=== PATIENT | male | born 1980 | race Caucasian/White ===

== ENCOUNTER → 2017-01-07 | Outpatient (CLI) | payer BC ==
[2017-01-08 02:10] LABS: Alternaria alternata IgE <0.10 kU/L; Aspergillus fumagatus IgE <0.10 kU/L; Cat Epith & Dander IgE <0.10 kU/L; Cladosporian herbarum IgE <0.10 kU/L; Dermato. farinae IgE <0.10 kU/L; Maple (Box Elder) IgE <0.10 kU/L; Orchard Grs(Cocksfoot) IgE <0.10 kU/L; Ragweed,Common IgE <0.10 kU/L
[2017-01-12 00:09] LABS: Alternaria tenius IgG 3.1 mcg/mL (< 13.6); Cladosporium herbarium IgG 23.6 mcg/mL (< 14.7); Phoma ssp. IgG 4.8 mcg/mL (< 6.6); Saccaharomospora viridis Not detected (Not detected); Saccaharopoly. rectivirgula Not detected (Not detected)
== END ==
LOC: LABWHC1 16:24
PROVIDERS: ATTEND Internal Medicine Critical Care Medicine
DX: R05 Cough (principal); R06.02 Shortness of breath
CPT/HCPCS: 36415; 82785; 85652; 86001; 86003; 86606; 86609

== ENCOUNTER → 2021-11-21 | Outpatient (CLI) | payer BC ==
[2021-11-21 15:16] VITALS: BP 144/78; PULSE 78; TEMP 98.2; BMI 51.2
--- NOTE | 2021-11-21 16:22 | P.HPBAR ---
Bariatric H&P - History & Physicial H&P Date: 11/21/21 History & Physicial: Visit/CC: initial clinic visit Patient initial contact: Initial weight: Initial weight in pounds: Height: 5 ft 9 in Initial BMI: Last weight: Current weight: 157.397 kg Current weight in pounds: 347.00 Current BMI: 51.2 Bird In [place] body weight (based on NIH guidelines): 72.575 kg Excess body weight loss: The patient is a 41 year-old M who presents for Bariatric Assessment. Patient presents to discuss bariatric surgical options. Patient is interested in sleeve gastrectomy. Patient has some dyspnea on exertion and some knee pain chronically. No other health issues that he is aware of. No tobacco use. No history of DVT or dysphagia. Denies any significant heartburn. Review of Systems The patient denies any acute changes in vision or hearing, no dysphagia or odynophagia, no chest pain or shortness of breath, no dysuria or hematuria, no headache, no runny nose, no rectal bleeding or melena, no unexplained weight loss Past Medical History Past Medical History: No Reported History History of Any Multi-Drug Resistant Organisms: None Reported Past Surgical History: Orthopedic Surgery Additional Past Surgical History / Comment(s): right wrist surgery. right knee arthroscopy Past Anesthesia/Blood Transfusion Reactions: No Reported Reaction Smoking Status: Never smoker Surgical - Exam Vital Signs Temp Pulse BP 98.2 F 78 144/78 11/21/21 15:14 11/21/21 15:14 11/21/21 15:14 Physical exam: General: Well-developed, well-nourished HEENT: Normocephalic, sclerae nonicteric Abdomen: Nontender, nondistended Extremities: No edema Neuro: Alert and oriented Bariatric Assessment & Plan (1) Morbid obesity with BMI of 50.0-59.9, adult Narrative/Plan: 41-year-old male with BMI of 51. Discussed bariatric surgical options and their associated risks and benefits in detail. Patient remains interested in sleeve gastrectomy. We'll clarify whether supervised weight loss is required. Patient will require EGD preoperatively. This will be arranged. Status: Acute Bariatric Checklist Checklist: Plan: Checklist: EGD: 1. Hiatal hernia: 2. H. Pylori: HgbA1c: Vitamin D: Smoking: Primary care physician referral: Psychiatry clearance: Cardiology clearance: Sleep study: Diet journal: VTE risk score: VTE risk level: Rehab needs at discharge:
[2021-11-21 22:38] LABS: HCT 44.1 % (39.6-50.0); HGB 14.9 g/dL (13.0-17.0); MCH 29.3 pg (27.0-32.0); MCHC 33.8 g/dL (32.0-37.0); MCV 86.8 fL (80.0-97.0); Mean Platelet Volume 10.3 fL (9.5-12.2); NRBC Per 100 WBC 0 /100 WBCS (0.0-0.0); Platelet Count 244 X 10*3/uL (140-440); RBC 5.08 X 10*6/uL (4.40-5.60); RDW 12.9 % (11.5-14.5); WBC 8.62 X 10*3/uL (4.50-10.00)
[2021-11-22 02:33] LABS: African American GFR (CKD) 117.4 (60.0-200.0); Albumin 4.7 g/dL (3.8-4.9); Albumin/Globulin Ratio 1.68 (1.60-3.17); Anion Gap 15.5 mmol/L (10.00-18.00); BUN/Creat Ratio 15.14 Ratio (12.00-20.00); Blood Urea Nitrogen 14.2 mg/dL (9.0-27.0); Calcium 9.5 mg/dL (8.7-10.3); Carbon Dioxide 22.3 mmol/L (20.0-27.5); Globulin 2.8 g/dL (1.6-3.3); Non-African American GFR(CKD) 101.3 (60.0-200.0); Potassium 4.5 mmol/L (3.5-5.5); Total Bilirubin 0.3 mg/dL (0.30-1.20); Total Protein 7.5 g/dL (6.2-8.2)
[2021-11-23 10:19] LABS: Anabasine Urine <2.0 ng/mL (<2.0)
== END ==
LOC: BARWHC3 14:04
PROVIDERS: ATTEND Surgery
DX: E66.01 Morbid (severe) obesity due to excess calories (principal); Z68.43 Body mass index [BMI] 50.0-59.9, adult; Z88.0 Allergy status to penicillin
CPT/HCPCS: 36415; 80053; 80323; 82306; 82607; 82746; 83036; 83540; 84425; 85027; 93005; 99203

== ENCOUNTER 2021-12-31 10:01 | Day surgery (SDC) | payer BC ==
[2021-12-26 18:21] VITALS: BMI 51.2
[~2021-12-31 10:01] MED LIST: LACTATED RINGERS 1,000 ML IV SCH; LIDOCAINE 1% (10MG/ML) FOR IV START INTRADERMA PRN
[2021-12-31 10:29] VITALS: TEMP 98.2
[2021-12-31] MEDS ORDERED: LACTATED RINGERS 1,000 ML IV ONE (10:30)
[2021-12-31] MEDS ORDERED: fentaNYL (PF) 50 MCG/ML 2 ML AMP ONE (11:00)
[2021-12-31] MEDS ORDERED: LIDOCAINE 2% INJ 20 MG/ML (2 ML VIAL) ONE (11:00)
[2021-12-31] MEDS ORDERED: KETAMINE 10 MG/ML 20 ML VIAL ONE (11:00)
[2021-12-31] MEDS ORDERED: PROPOFOL 10 MG/ML 20 ML VIAL IV ONE (11:00)
[2021-12-31] MEDS ORDERED: MIDAZOLAM 2 MG/2 ML VIAL ONE (11:00)
--- NOTE | 2021-12-31 11:02 | P.GSHP ---
History of Present Illness H&P Date: 12/31/21 Chief Complaint: GERD, presurgical 41-year-old male here today for upper endoscopy. Patient being followed in the bariatric clinic for possible sleep gastrectomy. Minimal reflux symptoms. No dysphagia. Past Medical History Past Medical History: No Reported History Additional Past Medical History / Comment(s): Low in Vitamin D, on Rx now. History of Any Multi-Drug Resistant Organisms: None Reported Past Surgical History: Orthopedic Surgery Additional Past Surgical History / Comment(s): right wrist surgery. right knee arthroscopy Past Anesthesia/Blood Transfusion Reactions: No Reported Reaction Smoking Status: Never smoker - Past Family History Mother Family Medical History: No Reported History Medications and Allergies Home Medications Medication Instructions Recorded Confirmed Type Cholecalciferol [Vitamin D3 (125 125 mcg PO DAILY 12/26/21 12/26/21 History Mcg = 5000 Iu)] Allergies Allergy/AdvReac Type Severity Reaction Status Date / Time Penicillins Allergy Swelling Verified 12/26/21 18:10 Surgical - Exam Vital Signs Temp Pulse Resp BP Pulse Ox 98.2 F 60 18 158/85 98 12/31/21 10:28 12/31/21 10:28 12/31/21 10:28 12/31/21 10:28 12/31/21 10:28 Physical exam: General: Well-developed, well-nourished HEENT: Normocephalic, sclerae nonicteric Abdomen: Nontender, nondistended Extremities: No edema Neuro: Alert and oriented Assessment and Plan (1) GERD (gastroesophageal reflux disease) Narrative/Plan: Will proceed with upper endoscopy. Current Visit: Yes Status: Acute Code(s): K21.9 - GASTRO-ESOPHAGEAL REFLUX DISEASE WITHOUT ESOPHAGITIS SNOMED Code(s): 015863372
--- NOTE | 2021-12-31 11:11 | P.PCN ---
Date of Procedure: 12/31/21 Procedure(s) Performed: Preoperative Dx: GERD, presurgical Postoperative Dx: Mild gastritis, mild distal esophagitis Procedure: EGD with Bx Anesthesia: Sedation Endoscopist: Dr. Ramos Specimens: Antrum, distal esophagus Endoscopic Procedure: The patient was on the endoscopy table in the left decubitus position. The Olympus gastroscope was inserted into the oropharynx and passed under direct visualization to the region of the third portion of the duodenum. From that point the scope was slowly withdrawn inspecting all surfaces carefully. There were no neoplastic inflammatory or polypoid lesions throughout the duodenum. The pylorus was widely patent. The stomach was carefully inspected. There was mild gastritis present. A biopsy of the antrum took place to rule out H. pylori. Retroflexion revealed a normal hiatus. The esophagus was then carefully examined. There was a small linear erosion measuring 1 cm that was biopsied. The remainder the esophagus appear normal. The patient was then taken to the recovery room in stable condition per anesthesia guidelines. Recommendations: Begin antiacid therapy. Continue bariatric preoperative workup
[2021-12-31] MEDS ORDERED: IV FLUID CONTINUATION 900 ML IV ONE (11:13)
[2021-12-31 11:30] VITALS: BP 124/81; PULSE 73; RESP 18
== END 2021-12-31 11:43 ==
LOC: ORWHC2ENDO 10:01
PROVIDERS: ATTEND Surgery
DX: K29.50 Unspecified chronic gastritis without bleeding (principal); K21.00 Gastro-esophageal reflux disease with esophagitis, without bleeding; Z88.0 Allergy status to penicillin
CPT/HCPCS: 43239; 88305; J2250; J3010; J2704; J2001

== ENCOUNTER → 2022-01-21 | Outpatient (CLI) | payer BC ==
[2022-01-21 14:30] VITALS: BP 154/77; PULSE 77; RESP 16; TEMP 98.2; BMI 51.8
--- NOTE | 2022-01-21 14:42 | P.BASOAP ---
Subjective Progress Note Date: 01/21/22 Principal diagnosis: Morbid obesity Patient here today for preoperative assessment. Underwent recent EGD on 12/31. Patient had mild gastritis and distal esophagitis at the time and was started on antiacid therapy. H. pylori was negative. No changes to his previous history and physical. Underwent psychiatric evaluation and has a letter of clearance here today. He has 1 more supervised weight loss visit for a total of 3 months this . Objective - Vital Signs Vital signs: Vital Signs Temp 98.2 F 01/21/22 14:19 Pulse 77 01/21/22 14:19 Resp 16 01/21/22 14:19 BP 154/77 01/21/22 14:19 Pulse Ox FiO2 Intake & Output 01/20/22 01/21/22 01/21/22 18:59 06:59 18:59 Weight 159.211 kg - Exam Abdomen: Soft, nontender, nondistended Assessment/Plan (1) Morbid obesity with BMI of 50.0-59.9, adult Narrative/Plan: 41-year-old male with morbid obesity and associated comorbidities. Patient remains interested in laparoscopic sleeve gastrectomy. The surgical consent form was reviewed in detail. We'll proceed with laparoscopic da Horace-assisted sleeve gastrectomy, possible open. The risks of bleeding, infection, stenosis, stricture, leak, abscess, fistula formation, peritonitis, poor weight loss, reflux, vomiting, conversion to an open procedure, aborting sleeve gastrectomy, AK, PE, DVT, and were discussed. The patient understands and wishes to proceed. Plan: Date: 01/21/22 Initial Weight: 157.397 kg Initial BMI: 51.2 Current Weight: 159.211 kg Current BMI: 51.8 Type of Surgery: Total Volume in Band: Previous Volume: Volume Removed: Volume Added: Band Size:
== END ==
LOC: BARWHC3 14:14
PROVIDERS: ATTEND Surgery
DX: E66.01 Morbid (severe) obesity due to excess calories (principal); K29.70 Gastritis, unspecified, without bleeding; Z68.43 Body mass index [BMI] 50.0-59.9, adult; Z88.0 Allergy status to penicillin
CPT/HCPCS: 99211

== ENCOUNTER → 2022-01-27 | Outpatient (CLI) | payer BC ==
[2022-01-27 14:01] VITALS: BMI 52.1
== END ==
LOC: BARWHC3 08:45
PROVIDERS: ATTEND Surgery
DX: E66.01 Morbid (severe) obesity due to excess calories (principal); Z71.3 Dietary counseling and surveillance; Z68.43 Body mass index [BMI] 50.0-59.9, adult; Z88.0 Allergy status to penicillin
CPT/HCPCS: 97804

== ENCOUNTER → 2022-03-04 | Outpatient (CLI) | payer BC ==
[2022-03-04 14:15] LABS: Basophils # (A) 0.02 X 10*3/uL (0.00-0.10); Basophils % (A) 0.3 %; Eosinophils # (A) 0.03 X 10*3/uL (0.04-0.35); Eosinophils % (A) 0.5 %; HCT 42.5 % (39.6-50.0); HGB 14.3 g/dL (13.0-17.0); Immature Grans, Automated 0.5 %; Lymphocytes % (A) 24.4 %; MCH 28.9 pg (27.0-32.0); MCHC 33.6 g/dL (32.0-37.0); Mean Platelet Volume 11.2 fL (9.5-12.2); Monocytes # (A) 0.56 X 10*3/uL (0.20-1.00); Monocytes % (A) 8.5 %; NRBC Per 100 WBC 0 /100 WBCS (0.0-0.0); Neutrophils # (A) 4.31 X 10*3/uL (1.80-7.70); Neutrophils % (A) 65.8 %; Platelet Count 225 X 10*3/uL (140-440); RBC 4.94 X 10*6/uL (4.40-5.60); WBC 6.55 X 10*3/uL (4.50-10.00)
[2022-03-04 14:27] LABS: African American GFR (CKD) 127.6 (60.0-200.0); Albumin 4.5 g/dL (3.8-4.9); Albumin/Globulin Ratio 1.44 (1.60-3.17); Anion Gap 11.7 mmol/L (10.00-18.00); BUN/Creat Ratio 17.61 Ratio (12.00-20.00); Blood Urea Nitrogen 14.6 mg/dL (9.0-27.0); Calcium 9.5 mg/dL (8.7-10.3); Carbon Dioxide 24.3 mmol/L (20.0-27.5); Globulin 3.1 g/dL (1.6-3.3); Non-African American GFR(CKD) 110.1 (60.0-200.0); Potassium 4.3 mmol/L (3.5-5.5); Total Bilirubin 0.4 mg/dL (0.30-1.20); Total Protein 7.6 g/dL (6.2-8.2)
== END | disposition home or self-care (01) ==
LOC: LABPAT 09:09
PROVIDERS: ATTEND Surgery
DX: Z01.812 Encounter for preprocedural laboratory examination (principal)
CPT/HCPCS: 80053; 85025

== ENCOUNTER 2022-03-10 09:40 | Inpatient (IN) | payer BC ==
[~2022-03-10 09:40] MED LIST changes: +ACETAMINOPHEN TAB 500 MG TAB PO PRN; +DEXAMETHASONE SOD PHOSPHATE 4 MG/ML 1 ML VIAL IV ONE; +ENOXAPARIN 40 MG/0.4 ML SYRINGE SQ PRN; -LACTATED RINGERS 1,000 ML IV SCH; +ONDANSETRON 4 MG/2 ML VIAL IVP ONE; +ONDANSETRON 4 MG/2 ML VIAL IVP PRN; +SCOPOLAMINE 1 MG/72 HR PATCH TRANSDERM ONE; +ceFAZolin 3 GM in SODIUM CHLORIDE 0.9% 100 ML IVPB PRN
--- NOTE | 2022-03-10 12:28 | P.GSHP ---
History of Present Illness H&P Date: 03/10/22 Chief Complaint: Morbid obesity 42-year-old male here today for elective sleeve gastrectomy. Was first seen in the bariatric clinic in November. Patient interested in sleeve gastrectomy from the onset. Complaints of dyspnea on exertion and bilateral knee pain. Recent findings of mild reflux. No history of DVT or dysphagia. No tobacco use. BMI 51. No abdominal surgeries. Past Medical History Past Medical History: No Reported History Additional Past Medical History / Comment(s): Low in Vitamin D, on Rx now. History of Any Multi-Drug Resistant Organisms: None Reported Past Surgical History: Orthopedic Surgery Additional Past Surgical History / Comment(s): Right wrist surgery, right knee arthroscopy, EGD. Past Anesthesia/Blood Transfusion Reactions: No Reported Reaction Past Psychological History: No Psychological Hx Reported Smoking Status: Never smoker Past Alcohol Use History: Occasional Past Drug Use History: None Reported - Past Family History Mother Family Medical History: No Reported History Medications and Allergies Home Medications Medication Instructions Recorded Confirmed Type Cholecalciferol [Vitamin D3 (125 125 mcg PO DAILY 12/26/21 01/22/22 History Mcg = 5000 Iu)] Allergies Allergy/AdvReac Type Severity Reaction Status Date / Time Penicillins Allergy Swelling Verified 03/04/22 17:11 Surgical - Exam Physical exam: General: Well-developed, well-nourished HEENT: Normocephalic, sclerae nonicteric Abdomen: Nontender, nondistended Extremities: No edema Neuro: Alert and oriented Assessment and Plan (1) Morbid obesity with BMI of 50.0-59.9, adult Narrative/Plan: 42-year-old male with morbid obesity and associated comorbidities. We'll proceed with laparoscopic da Horace assisted sleeve gastrectomy, possible open. The risks of bleeding, infection, stenosis, stricture, leak, abscess, fistula formation, peritonitis, poor weight loss, reflux, vomiting, conversion to an open procedure, aborting sleeve gastrectomy, [place], PE, DVT, and were discussed. The patient understands and wishes to proceed. Current Visit: No Status: Acute Code(s): E66.01 - MORBID (SEVERE) OBESITY DUE TO EXCESS CALORIES; Z68.43 - BODY MASS INDEX [BMI] 50.0-59.9, ADULT SNOMED Code(s): 121126293
[2022-03-10] MEDS: LACTATED RINGERS 1,000 ML IV SCH (12:32)
[2022-03-10] MEDS ORDERED: GLYCOPYRROLATE 0.2 MG/ML 2 ML VIAL ONE (15:04)
[2022-03-10] MEDS ORDERED: PROPOFOL 10 MG/ML 20 ML VIAL IV ONE (15:04)
[2022-03-10] MEDS ORDERED: fentaNYL (PF) 50 MCG/ML 2 ML AMP ONE (15:04)
[2022-03-10] MEDS ORDERED: SUCCINYLCHOLINE CHLORIDE 200 MG/10 ML VIAL IV ONE (15:04)
[2022-03-10] MEDS ORDERED: HYDROmorphone (PF) 1 MG/ML ONE (15:04)
[2022-03-10] MEDS ORDERED: LIDOCAINE 2% INJ 20 MG/ML (2 ML VIAL) ONE (15:04)
[2022-03-10] MEDS ORDERED: MIDAZOLAM 2 MG/2 ML VIAL ONE (15:04)
[2022-03-10] MEDS ORDERED: ROCURONIUM 10 MG/ML (5 ML VIAL) IV ONE (15:04)
[2022-03-10] MEDS ORDERED: BUPIVACAIN-EPI 0.25%-1:200,000 30 ML VIAL SQ ONE ×2 (15:39)
[2022-03-10] MEDS ORDERED: METHYLENE BLUE IRRIGATION ONE ×4 (16:36)
[2022-03-10] MEDS ORDERED: SODIUM CHLORIDE 0.9% IRRIGATION ONE ×4 (16:36)
[2022-03-10] MEDS ORDERED: ONDANSETRON 4 MG/2 ML VIAL IVP PRN (17:19)
[2022-03-10] MEDS ORDERED: HYDROmorphone 0.5 MG/0.5 ML SYRINGE IVP PRN (17:19)
[2022-03-10] MEDS ORDERED: diphenhydrAMINE 50 MG/ML 1 ML VIAL IVP PRN (17:19)
[2022-03-10] MEDS ORDERED: NALOXONE 0.4 MG/ML 1 ML VIAL IV PRN (17:19)
[2022-03-10] MEDS ORDERED: SIMETHICONE 40 MG/0.6 ML DROPS 2,000 MG/30 ML BOTTLE PO PRN (17:19)
[2022-03-10] MEDS ORDERED: HYOSCYAMINE ORAL DROPS 1.875 MG/15 ML BOTTLE PO PRN (17:19)
[2022-03-10] MEDS ORDERED: LACTATED RINGERS 1,000 ML IV ONE (17:21)
--- NOTE | 2022-03-10 17:23 | P.OP ---
Date of Procedure: 03/10/22 Procedure(s) Performed: PREOPERATIVE DIAGNOSIS: Morbid obesity POSTOPERATIVE DIAGNOSIS: Same PROCEDURE: Da Horace assisted laparoscopic sleeve gastrectomy SURGEON: Richard EBL: Minimal ANESTHESIA: General COMPLICATIONS: None OPERATIVE PROCEDURE: Patient was placed in the operating table in the supine position. The patient was then placed under general anesthesia at that time. The abdomen was prepped and draped in the usual sterile fashion. A 5 mm optical trocar was placed in the left upper quadrant 20 cm inferior to the xiphoid process. Insufflation took place up to 15 mmHg. No adhesions were seen. A 5 mm subxiphoid incision was made and the medium Hansa retractor was used to elevate the left lobe of liver anteriorly. This was held in place using the fixed arm retractor. An additional 12 mm trocar was placed in the right paramedian location and 2 additional 8 mm trochars were placed in the left upper quadrant one medial and one lateral to the initially placed optical trocar. All of these trochars were placed along the same plane. The initial 5 was then switched to an 8 mm trocar. The robot was then docked appropriately. The 8 mm camera was placed in the left paramedian trocar site down viewing. A fenestrated bipolar was placed in arm 1, arm 3 had the vessel sealer, arm 4 had the small grasper retractor. The hiatus was inspected and there was no visible hiatal hernia. At that point I moved to the distal aspect of the greater curvature the stomach. The short gastric vasculature were divided using the vessel sealer. This dissection took place distally until we were 4 cm from the pylorus. The posterior adhesions were divided as well. The dissection then took place proximally along the stomach until the posterior short gastrics were divided and the fundus of the stomach was fully mobilized. Once the stomach was fully mobilized the blunt tipped 40-Emirati bougie dilator was advanced into the stomach and advanced all the way to the prepyloric location. The patient's stomach by palpation seemed to be of average thickness. No buttressing was utilized. A total of 7 firings of the stapler to place. First load was green, followed by 4 blue loads followed by 2 white loads. The stomach was then placed in the right upper quadrant after it was fully excised. The oral gastric tube was reinserted. The stomach was insufflated with approximately 100 mL of methylene blue. No evidence of leak or obstruction was seen. Tisseel fibrin glue was then used along the length of the staple line. The robot was then undocked. The da Horace laparoscope was used and the stomach was removed from the 12 mm trocar site without difficulty. The fascia at the 12mm site was closed using [id number] 0 Vicryl sutures with the laparoscopic suture passer and Bertin Iris technique. The insufflation was evacuated. The skin at all 5 incisions were closed using 4-0 Monocryl sutures. Skin glue was then applied. DISPOSITION: Stable to recovery room
[2022-03-10] MEDS ORDERED: ONDANSETRON 4 MG/2 ML VIAL IVP ONE (17:35)
[2022-03-10] MEDS: HYDROmorphone 0.5 MG/0.5 ML SYRINGE IVP PRN ×4 (18:02→18:45)
[2022-03-10] MEDS: HYDROmorphone 1 MG/ML 1 ML SYRINGE IVP PRN ×2 (19:35→22:40)
[2022-03-10] MEDS: ACETAMINOPHEN IV (For NPO) 1,000 MG in EMPTY BAG 1 BAG IVPB SCH (20:00)
[2022-03-10] MEDS: ALBUTEROL NEBULIZED 2.5 MG/3 ML INHALATION SCH ×2 (20:19→20:22)
[2022-03-10] MEDS: 0.9% NACL WITH KCL 20 MEQ/L 1,000 ML IV SCH (20:52)
[2022-03-11] MEDS: ACETAMINOPHEN IV (For NPO) 1,000 MG in EMPTY BAG 1 BAG IVPB SCH ×5 (00:34→23:28)
[2022-03-11] MEDS: ENOXAPARIN 40 MG/0.4 ML SYRINGE SQ SCH ×3 (00:34→21:34)
[2022-03-11] MEDS: 0.9% NACL WITH KCL 20 MEQ/L 1,000 ML IV SCH ×3 (00:35→17:58)
[2022-03-11] MEDS: HYDROmorphone 1 MG/ML 1 ML SYRINGE IVP PRN (03:59)
[2022-03-11] MEDS: LACTATED RINGERS 1,000 ML IV SCH (08:02)
[2022-03-11 08:46] LABS: Basophils # (A) 0.01 X 10*3/uL (0.00-0.10); Basophils % (A) 0.1 %; Eosinophils # (A) 0 X 10*3/uL (0.04-0.35); Eosinophils % (A) 0 %; HCT 40.4 % (39.6-50.0); HGB 13.2 g/dL (13.0-17.0); Immature Grans, Automated 0.3 %; Lymphocytes # (A) 0.83 X 10*3/uL (0.90-5.00); Lymphocytes % (A) 8.5 %; MCH 28.8 pg (27.0-32.0); MCHC 32.7 g/dL (32.0-37.0); Mean Platelet Volume 11.1 fL (9.5-12.2); Monocytes # (A) 0.64 X 10*3/uL (0.20-1.00); Monocytes % (A) 6.6 %; NRBC Per 100 WBC 0 /100 WBCS (0.0-0.0); Neutrophils # (A) 8.23 X 10*3/uL (1.80-7.70); Neutrophils % (A) 84.5 %; Platelet Count 229 X 10*3/uL (140-440); RBC 4.59 X 10*6/uL (4.40-5.60); RDW 13.4 % (11.5-14.5); WBC 9.74 X 10*3/uL (4.50-10.00)
[2022-03-11 09:03] LABS: Anion Gap 16.4 mmol/L (10.00-18.00); Calcium 8.6 mg/dL (8.7-10.3); Carbon Dioxide 16.6 mmol/L (20.0-27.5); Phosphorus 3.4 mg/dL (2.4-5.1); Potassium 4.7 mmol/L (3.5-5.5)
[2022-03-11 09:04] LABS: African American GFR (CKD) 128.6 (60.0-200.0)
[2022-03-11 09:05] LABS: Magnesium 1.9 mg/dL (1.5-2.4)
--- NOTE | 2022-03-11 09:08 | FL ---
EXAMINATION TYPE: FL UGI DATE OF EXAM: 03/11/2022 COMPARISON: None HISTORY: Postop gastric sleeve TECHNIQUE: A single contrast UGI study is performed. FINDINGS: Images: 58 Fluoroscopy time: 49 seconds. Contrast passes from the distal esophagus through the gastric sleeve with R hesitancy. No extravasati on of contrast is evident. No free air is noted during this examination. Overhead radiographs were obtained which are unremarkable. The demonstration of contrast passing thro ugh the gastric sleeve is evident. IMPRESSIONS: 1. Normal post gastric sleeve without obstruction or hesitancy. No extravasation.
[2022-03-11] MEDS: ALBUTEROL NEBULIZED 2.5 MG/3 ML INHALATION SCH ×4 (09:11→21:10)
[2022-03-11] MEDS: PANTOPRAZOLE 40 MG/10 ML VIAL IV SCH (09:14)
--- NOTE | 2022-03-11 11:34 | P.PN ---
Subjective Progress Note Date: 03/11/22 CHIEF COMPLAINT: Morbid obesity HISTORY OF PRESENT ILLNESS: Postop day# 1 status post laparoscopic sleeve gastrectomy. Patient complaining of nausea after drinking the barium for the upper GI. He denies any vomiting. He does report abdominal pain. No flatus. He has been up and ambulating. Upper GI shows no obstruction or hesitancy. No extravasation. Afebrile. WBC is 9.74 Hgb 13.2 platelets 229 sodium is 13 potassium is 4.7 creatinine 0.8 magnesium 1.9 phosphorus 3.4 PHYSICAL EXAM: VITAL SIGNS: Reviewed. GENERAL: Well-developed in no acute distress. HEENT: No sclera icterus. Extraocular movements grossly intact. Moist buccal mucosa. Head is atraumatic, normocephalic. ABDOMEN: Soft. Nondistended. Incision sites clean and intact NEUROLOGIC: Alert and oriented. Cranial nerves II through XII grossly intact. ASSESSMENT: 1. Morbid obesity status post Da Horace assisted laparoscopic sleeve gastrectomy PLAN: -Start bariatric clear liquid diet -Continue IV fluids -Continue antibiotics with Zofran and scopolamine patch -Toradol added for pain control -Encouraged patient to use incentive spirometer -Encouraged patient to ambulate -GI prophylaxis Protonix and DVT prophylaxis subcu Lovenox Physician Machine Operators note has been reviewed by physician. Signing provider agrees with the documented findings, assessment, and plan of care. I have personally seen and examined the patient, reviewed the [employer] SKILL[employer] COACH /PAs history, exam and MDM and agree with the assessment and plan as written. Based on total visit time, I have performed more than 50% of the visit. As above: Patient doing well today. Minimal discomfort. Begin bariatric liquids. Probable discharge tomorrow. Objective - Vital Signs Vital signs: Vital Signs Temp 97.8 F 03/11/22 07:43 Pulse 64 03/11/22 07:43 Resp 16 03/11/22 07:43 BP 104/56 03/11/22 07:43 Pulse Ox 98 03/11/22 07:43 FiO2 Intake & Output 03/10/22 03/11/22 03/11/22 18:59 06:59 18:59 Intake Total 1501 Output Total 10 Balance 1491 Weight 148.8 kg Intake: IV 1501 Output: Estimated Blood Loss 10 Other: Voiding Method Toilet - Labs CBC & Chem 7: 03/11/22 06:20 03/11/22 06:20 Labs: Abnormal Lab Results - Last 24 Hours (Table) 03/11/22 03/11/22 Range/Units 06:20 06:20 Neutrophils # 8.23 H (1.80-7.70) X 10*3/uL Lymphocytes # 0.83 L (0.90-5.00) X 10*3/uL Eosinophils # 0 L (0.04-0.35) X 10*3/uL Carbon Dioxide 16.6 L (20.0-27.5) mmol/L Calcium 8.6 L (8.7-10.3) mg/dL
[2022-03-11] MEDS: KETOROLAC 15 MG/ML 1 ML VIAL IVP SCH ×3 (11:36→23:29)
[2022-03-11 13:00] VITALS: BMI 48.4
--- NOTE | 2022-03-11 14:07 | P.CONS ---
History of Present Illness - Reason for Consult Consult date: 03/11/22 Medical management postop sleep gastrectomy - History of Present Illness This is a pleasant 42-year-old male who was recently admitted under surgical services and underwent sleeve gastrectomy with Dr. Ramso is postop day #1 and is being closely monitored. Patient reports his primary care provider is out of [facility] and denies any significant past medical history. Patient has been following at the bariatric clinic for morbid obesity and decided to go forward with sleeve gastrectomy. Patient reports to feeling fatigued today although has been up and walking and reports minimal gas. Patient reports to belching and did have upper GI series this morning postop which shows a normal post gastric sleeve without obstruction or hesitancy and no extravasation noted. Sluggish bowel sounds noted on exam with abdominal binder noted. Patient is maintained on bariatric clear liquid diet. Patient denies any nausea or vomiting and encourage the patient to increase activity as tolerated and also continue with incentive spirometer use at least 10 times every hour while awake. Patient is afebrile denies chest pain or shortness of breath. Review Of Systems: Constitutional: No fever, no chills, no night sweats. No weight change. No weakness, reports fatigue. No daytime sleepiness. EENT: No headache. No blurred vision or double vision, no loss of vision. No loss of Hearing, no ringing in the ears, no dizziness. No nasal drainage or congestion. No epistaxis. No sore throat. Lungs: No shortness of breath, cough, no sputum production. No wheezing. Cardiovascular: No chest pain, no lower extremity edema. No palpitations. No paroxysmal nocturnal dyspnea. No orthopnea. No lightheadedness or dizziness. No syncopal episodes. Abdominal: Reports some mild abdominal pain with moving. Reported some mild nausea while drinking the a.m. upper GI series contrast, no vomiting. No diarrhea. No constipation. No bloody or tarry stools.. No loss of appetite. Reports belching with minimal gas and no bowel movement as of yet Genitourinary: No dysuria, increased frequency, urgency. No urinary retention. Musculoskeletal: No myalgias. No muscle weakness, no gait dysfunction, no frequent falls. No back pain. No neck pain. Integumentary: No wounds, no lesions. No rash or pruritus. No unusual bruising. No change in hair or nails. Neurologic: No aphasia. No facial droop. No change in mentation. No head injury. No headache. No paralysis. No paresthesia. Psychiatric: No depression. No anxiety. No mood swings. Endocrine: No abnormal blood sugars. No weight change. No excessive sweating or thirst. No cold intolerance. Active Medications Albuterol Sulfate (Albuterol Nebulized 2.5 Mg/3 Ml) 2.5 mg INHALATION RT-QID COUNT INCLUDES THE [facility] Last Admin: 03/11/22 12:45 Dose: 2.5 mg Diphenhydramine HCl (Diphenhydramine 50 Mg/Ml 1 Ml Vial) 25 mg IVP Q6HR PRN PRN Reason: Itching Enoxaparin Sodium (Enoxaparin 40 Mg/0.4 Ml Syringe) 40 mg SQ Q12HR COUNT INCLUDES THE [facility] Last Admin: 03/11/22 09:14 Dose: 40 mg Hydromorphone HCl (Hydromorphone 0.5 Mg/0.5 Ml Syringe) 0.5 mg IVP Q3HR PRN PRN Reason: Moderate Pain (4 to 6) Hydromorphone HCl (Hydromorphone 1 Mg/Ml 1 Ml Syringe) 1 mg IVP Q3HR PRN PRN Reason: Severe Pain (7 to 10) Last Admin: 03/11/22 03:59 Dose: 1 mg Hyoscyamine (Hyoscyamine Oral Drops 1.875 Mg/15 Ml Bottle) 0.125 mg PO Q6HR PRN PRN Reason: Esophageal Spasm Lactated Ringer's (Lactated Ringers) 1,000 mls @ 20 mls/hr IV .Q24H COUNT INCLUDES THE [facility] Last Admin: 03/11/22 08:02 Dose: Not Given Potassium Chloride/Sodium Chloride (Ns-Kcl 20 Meq/L Iv Solution) 1,000 mls @ 100 mls/hr IV .Q10H COUNT INCLUDES THE [facility] Last Admin: 03/11/22 09:15 Dose: 100 mls/hr Acetaminophen 1,000 mg/ IV (Solution) 100 mls @ 400 mls/hr IVPB Q6HR COUNT INCLUDES THE [facility] Last Admin: 03/11/22 11:35 Dose: 400 mls/hr Ketorolac Tromethamine (Ketorolac 15 Mg/Ml 1 Ml Vial) 15 mg IVP Q6HR COUNT INCLUDES THE [facility] Stop: 03/14/22 08:10 Last Admin: 03/11/22 11:36 Dose: 15 mg Lidocaine HCl (Lidocaine 1% (10mg/Ml) For Iv Start) 0.1 ml INTRADERMA PER PROTOCOL PRN PRN Reason: IV Start Naloxone HCl (Naloxone 0.4 Mg/Ml 1 Ml Vial) 0.2 mg IV Q2M PRN PRN Reason: Opioid Reversal Ondansetron HCl (Ondansetron 4 Mg/2 Ml Vial) 4 mg IVP Q6HR PRN PRN Reason: Nausea And Vomiting Last Admin: 03/11/22 09:14 Dose: 4 mg Pantoprazole Sodium (Pantoprazole 40 Mg/10 Ml Vial) 40 mg IV DAILY AARON Last Admin: 03/11/22 09:14 Dose: 40 mg Simethicone (Simethicone 40 Mg/0.6 Ml Drops 2,000 Mg/30 Ml Bottle) 40 mg PO Q6HR PRN PRN Reason: Bloating PHYSICAL EXAMINATION: GENERAL: The patient is alert and oriented x4, Well developed, well nourished. HEENT: Pupils are round and equally reacting to light. EOMI. no scleral icterus. No conjunctival pallor. Normocephalic, atraumatic. No pharyngeal erythema. No thyromegaly. CARDIOVASCULAR: S1 and S2 muffled PULMONARY: diminished breath sounds bilaterally with no wheezing or rhonchi noted. ABDOMEN: soft. Mildly tender on exam. obese. non-distended, sluggish bowel sounds. No palpable organomegaly. Abdominal binder noted MUSCULOSKELETAL: No joint swelling or deformity. EXTREMITIES: No cyanosis, clubbing, or pedal edema. NEUROLOGICAL: Gross neurological examination did not reveal any focal deficits. SKIN: No rashes. Assessment: Status post sleeve gastrectomy postop day #1 Morbid obesity with a body mass index of 48.4 History of vitamin D deficiency GI prophylaxis DVT prophylaxis Full code Plan: Recommend to continue with current medications and management per general surgery services Dr. Ramos. Patient is status post laparoscopic sleeve gastrectomy. Patient underwent upper GI series experiencing some mild nausea secondary to the contrast although study shows no obstruction status post sleeve gastrectomy. Patient continues with some abdominal discomfort and abdominal b shelton is noted and encourage the patient to increase activity as tolerated. Patient was maintained on ice chips and reports the nausea has subsided and will be started on clear liquid diet per surgery recommendations. Patient is on empiric antibiotics along with pain management per primary service. Patient with incentive spirometer at the bedside and encourage the patient continue using at least 10 times every hour while awake. Recommend GI and DVT prophylaxis that has been ordered. Patient reports he takes no home medications at this time. Recommend follow-up labs in the a.m. We will continue to follow with surgery services during hospitalization. Thanks for this consultation. The impression and plan of care has been dictated by Linda Gutiérrez, nurse practitioner as directed. MD Noel I have performed a history and examination and MDM of this patient, discussed the same with the dictator, and agree with the dictator's assessment and plan as written ,documented as a scribe. Based on total visit time, I have performed more than 50% of the visit. Any additional findings or plans will be noted. Past Medical History Past Medical History: No Reported History Additional Past Medical History / Comment(s): Low in Vitamin D, on Rx now. History of Any Multi-Drug Resistant Organisms: None Reported Past Surgical History: Orthopedic Surgery Additional Past Surgical History / Comment(s): Right wrist surgery, right knee arthroscopy, EGD. Past Anesthesia/Blood Transfusion Reactions: No Reported Reaction Past Psychological History: No Psychological Hx Reported Smoking Status: Never smoker Past Alcohol Use History: Occasional Past Drug Use History: None Reported - Past Family History Mother Family Medical History: No Reported History Medications and Allergies Home Medications Medication Instructions Recorded Confirmed Type Cholecalciferol [Vitamin D3 (125 125 mcg PO DAILY 12/26/21 03/10/22 History Mcg = 5000 Iu)] Allergies Allergy/AdvReac Type Severity Reaction Status Date / Time Penicillins Allergy Swelling Verified 03/10/22 12:35 Physical Exam Vitals: Vital Signs Temp Pulse Pulse Resp BP Pulse Ox 03/11/22 07:43 97.8 F 64 16 104/56 98 03/11/22 01:45 98.3 F 69 18 127/70 95 03/10/22 21:02 69 12 116/69 95 03/10/22 20:41 64 12 125/76 95 03/10/22 20:34 67 03/10/22 20:22 64 95 03/10/22 20:21 97.6 F 66 12 106/70 95 03/10/22 19:00 62 16 117/57 95 03/10/22 18:45 67 16 113/65 93 L 08/01/22 18:30 64 16 120/59 93 L 03/10/22 18:15 63 16 125/67 93 L 03/10/22 18:00 62 16 129/63 93 L 03/10/22 17:45 65 16 121/83 96 03/10/22 17:33 97.3 F L 73 16 132/67 99 03/10/22 12:38 98.2 F 73 18 128/70 94 L Intake and Output 03/10/22 03/11/22 03/11/22 22:59 06:59 14:59 Intake Total 901 Output Total 10 Balance 891 Intake: IV 901 Output: Estimated Blood Loss 10 Results CBC & Chem 7: 03/11/22 06:20 03/11/22 06:20 Labs: Abnormal Lab Results - Last 24 Hours (Table) 03/11/22 03/11/22 Range/Units 06:20 06:20 Neutrophils # 8.23 H (1.80-7.70) X 10*3/uL Lymphocytes # 0.83 L (0.90-5.00) X 10*3/uL Eosinophils # 0 L (0.04-0.35) X 10*3/uL Carbon Dioxide 16.6 L (20.0-27.5) mmol/L Calcium 8.6 L (8.7-10.3) mg/dL Assessment and Plan Time with Patient: Greater than 30
[2022-03-12] MEDS: 0.9% NACL WITH KCL 20 MEQ/L 1,000 ML IV SCH (04:27)
[2022-03-12] MEDS: ACETAMINOPHEN IV (For NPO) 1,000 MG in EMPTY BAG 1 BAG IVPB SCH ×2 (05:29→11:58)
[2022-03-12] MEDS: KETOROLAC 15 MG/ML 1 ML VIAL IVP SCH ×2 (05:30→11:58)
[2022-03-12] MEDS: LACTATED RINGERS 1,000 ML IV SCH (06:38)
[2022-03-12] MEDS: ALBUTEROL NEBULIZED 2.5 MG/3 ML INHALATION SCH ×2 (08:06→11:50)
[2022-03-12] MEDS: PANTOPRAZOLE 40 MG/10 ML VIAL IV SCH (09:25)
[2022-03-12] MEDS: ENOXAPARIN 40 MG/0.4 ML SYRINGE SQ SCH (09:25)
--- NOTE | 2022-03-12 14:22 | P.DS ---
Providers Date of admission: 03/10/22 12:18 Expected date of discharge: 03/12/22 Attending physician: Matthew Ramos Consults: 03/10/22 17:19 Consult Physician Routine Consulting Provider: Rosie Smith Consult Reason/Comments: Medical management Do you want consulting provider notified?: Yes Primary care physician: Stated None Hospital Course: Discharge diagnosis 1. Morbid obesity status post [place]ace assisted laparoscopic sleeve gastrectomy Hospital course This is a 42-year-old male with a known history of morbid obesity. He is status post endoscopic sleeve gastrectomy. Upper GI shows no evidence of obstruction or hesitancy. Patient tolerating bariatric clear liquid diet. His pain is controlled. He is having flatus and bowel movement. Denies any difficulty u rinating. He is up and ambulating. He is afebrile. He is stable for discharge. Please refer to chart for any further details. Physician Security Sme note has been reviewed by physician. Signing provider agrees with the documented findings, assessment, and plan of care. Patient Condition at Discharge: Stable Plan - Discharge Summary Discharge Rx Participant: Yes New Discharge Prescriptions: New bisacodyL [Dulcolax] 5 mg PO DAILY PRN #10 tab PRN Reason: Constipation Ondansetron Odt [Zofran Odt] 4 mg PO Q8HR PRN #9 tab PRN Reason: Nausea Simethicone 40 mg/0.6 ml Drops [Mylicon Drops] 40 mg PO PCHS PRN #30 ml PRN Reason: Gas Omeprazole [PriLOSEC] 40 mg PO DAILY #30 cap Acetaminophen Tab [Tylenol] 1,000 mg PO Q6HR PRN #30 tablet PRN Reason: Pain Discontinued Cholecalciferol [Vitamin D3 (125 Mcg = 5000 Iu)] 125 mcg PO DAILY Discharge Medication List Acetaminophen Tab [Tylenol] 1,000 mg PO Q6HR PRN #30 tablet 03/12/22 [Rx] Omeprazole [PriLOSEC] 40 mg PO DAILY #30 cap 03/12/22 [Rx] Ondansetron Odt [Zofran Odt] 4 mg PO Q8HR PRN #9 tab 03/12/22 [Rx] Simethicone 40 mg/0.6 ml Drops [Mylicon Drops] 40 mg PO PCHS PRN #30 ml 03/12/22 [Rx] bisacodyL [Dulcolax] 5 mg PO DAILY PRN #10 tab 03/12/22 [Rx] Follow up [facility]ment(s[facility] [place] [facility] Patient Instructions/Handouts: Nutrition after Bariatric Surgery (DC), Nut rition after Bariatric Surgery (GEN), Laparoscopic Sleeve Gastrectomy (DC), Laparoscopic Sleeve Gastrectomy (GEN) Activity/Diet/Wound Care/Special Instructions: No driving while taking [place] No lifting over 10 pounds You may shower. No soaking or tub baths for 2 weeks Very light activity until you are reevaluated at your follow up appointment with your surgeon No straws or carbonated beverages Hold on taking vitamins until seen by surgeon Discharge Disposition: HOME SELF-CARE
[2022-03-12 15:14] VITALS: BP 147/82; PULSE 54; RESP 15; TEMP 97.8
--- NOTE | 2022-03-12 16:07 | P.PN ---
Subjective Progress Note Date: 03/12/22 - Reason for Consult Consult date: 03/11/22 Medical management postop sleep gastrectomy - History of Present Illness This is a pleasant 42-year-old male who was recently admitted under surgical services and underwent sleeve gastrectomy with Dr. Cunningham is postop day #1 and is being closely monitored. Patient reports his primary care provider is out of [facility] and denies any significant past medical history. Patient has been following at the bariatric clinic for morbid obesity and decided to go forward with sleeve gastrectomy. Patient reports to feeling fatigued today although has been up and walking and reports minimal gas. Patient reports to belching and did have upper GI series this morning postop which shows a normal post gastric sleeve without obstruction or hesitancy and no extravasation noted. Sluggish bowel sounds noted on exam with abdominal binder noted. Patient is maintained on bariatric clear liquid diet. Patient denies any nausea or vomiting and encourage the patient to increase activity as tolerated and also continue with incentive spirometer use at least 10 times every hour while awake. Patient is afebrile denies chest pain or shortness of breath. 03/12/2022 Patient was seen and evaluated with family member at the bedside currently sitting up at the side of the bed and has been walking all total times around the varma and feeling much improved. Patient continues with some mild epigastric discomfort with some delayed swallowing reaction although denies any nausea or vomiting and tolerating diet. Patient will continue on bariatric clear liquid diet per surgical recommendations and close outpatient follow-up. Patient is afebrile and denies chest pain or shortness of breath. Patient reports the passing gas and did have a bowel movement this morning. Patient also urinating with no difficulties. Patient is anticipating being discharged today. Review of systems: Constitutional: No reports of fatigue, fever, or chills Cardiovascular: No reports of chest pain or palpitations Respiratory: No reports of shortness of breath or cough GI: No reports of nausea, vomiting, or diarrhea, reports passing gas and did have a bowel movement. : No reports of dysuria or retention Neurovascular: No reports of weakness or numbness All medications have been reviewed PHYSICAL EXAMINATION: GENERAL: The patient is alert and oriented x4, Well developed, well nourished. HEENT: Pupils are round and equally reacting to light. EOMI. no scleral icterus. No conjunctival pallor. Normocephalic, atraumatic. No pharyngeal erythema. No thyromegaly. CARDIOVASCULAR: S1 and S2 muffled PULMONARY: diminished breath sounds bilaterally with no wheezing or rhonchi noted. ABDOMEN: soft. non tender on exam. obese. Normoactive bowel sounds. No palpable organomegaly. Abdominal binder noted MUSCULOSKELETAL: No joint swelling or deformity. EXTREMITIES: No cyanosis, clubbing, or pedal edema. NEUROLOGICAL: Gross neurological examination did not reveal any focal deficits. SKIN: No rashes. Assessment: Status post sleeve gastrectomy postop day #2 Morbid obesity with a body mass index of 48.4 History of vitamin D deficiency GI prophylaxis DVT prophylaxis Full code Plan: Recommend to continue with current medications and management per general surgery services Dr. Cunningham. Patient is status post laparoscopic sleeve gastrectomy. Patient reports to feeling much improved and has been walking the halls multiple times and is anticipating being discharged today. Patient is tolerating diet and will continue with clear liquids per surgical recommendations and close outpatient follow-up with Dr. cunningham. Patient with incentive spirometer at the bedside and encourage the patient to continue using at least 10 times every hour while awake. Patient with an abdominal binder noted and encourage the patient to continue using. Encourage the patient follow-up with primary care provider in the outpatient setting as well. We will continue to follow with surgery services during hospitalization. Thanks for this consultation. The impression and plan of care has been dictated by Linda Gutiérrez, nurse practitioner as directed. MD Noel I have performed a history and examination and MDM of this patient, discussed the same with the dictator, and agree with the dictator's assessment and plan as written ,documented as a scribe. Based on total visit time, I have performed more than 50% of the visit. Any additional findings or plans will be noted. Objective - Vital Signs Vital signs: Vital Signs Temp 98.3 F 03/12/22 07:37 Pulse 72 03/12/22 08:17 Resp 16 03/12/22 08:17 BP 104/62 03/12/22 07:37 Pulse Ox 95 03/12/22 08:06 FiO2 Intake & Output 03/11/22 03/12/22 03/12/22 18:59 06:59 18:59 Intake Total 540 Balance 540 Weight 148.8 kg Intake: Oral 540 Other: Voiding Method Toilet - Labs CBC & Chem 7: 08/02/22 06:20 03/11/22 06:20
== END 2022-03-12 15:16 | disposition home or self-care (01) | DRG 621 ==
LOC: 2ORMAIN 12:18 → 4SSUR 18:27
PROVIDERS: ADMIT Surgery; ATTEND Surgery
PROC: 0DNW4ZZ Release Peritoneum, Percutaneous Endoscopic Approach (ICD-10-PCS; 2022-03-10)
PROC: 8E0W4CZ Robotic Assisted Procedure of Trunk Region, Percutaneous Endoscopic Approach (ICD-10-PCS; 2022-03-10)
PROC: 0DB64Z3 Excision of Stomach, Percutaneous Endoscopic Approach, Vertical (ICD-10-PCS; principal; 2022-03-10 13:40)
DX: E66.01 Morbid (severe) obesity due to excess calories (principal); Z68.43 Body mass index [BMI] 50.0-59.9, adult; K21.9 Gastro-esophageal reflux disease without esophagitis; K66.0 Peritoneal adhesions (postprocedural) (postinfection); E55.9 Vitamin D deficiency, unspecified; Z88.0 Allergy status to penicillin
CPT/HCPCS: 74240; 80051; 82310; 82565; 83735; 84100; 84520; 85025; 86850; 86900; 86901; 88307; 94640; 94760

== ENCOUNTER → 2022-03-14 | Outpatient (CLI) | payer BC ==
[2022-03-14 11:05] VITALS: BP 122/82; PULSE 55; TEMP 98.2; BMI 47.8
== END ==
LOC: BARWHC3 09:50
PROVIDERS: ATTEND Surgery
DX: Z09 Encounter for follow-up examination after completed treatment for conditions other than malignant neoplasm (principal); Z98.84 Bariatric surgery status; Z88.0 Allergy status to penicillin
CPT/HCPCS: 99211

== ENCOUNTER → 2022-03-18 | Outpatient (CLI) | payer BC ==
[2022-03-18 15:19] VITALS: BP 130/77; PULSE 60; RESP 16; TEMP 97.7; BMI 46.5
--- NOTE | 2022-03-18 16:57 | P.BASOAP ---
Subjective Progress Note Date: 03/18/22 Principal diagnosis: Morbid obesity Patient returns after sleeve gastrectomy 1 week ago. Doing well. Patient with adequate liquid and protein intake. He has lost 9 pounds since last week. Heart rate is normal. Patient did have some mild discomfort at his extraction site right lower midabdomen after catching a child from falling yesterday. Objective - Vital Signs Vital signs: Vital Signs Temp 97.7 F 03/18/22 15:16 Pulse 60 03/18/22 15:16 Resp 16 03/18/22 15:16 BP 130/77 03/18/22 15:16 Pulse Ox FiO2 Intake & Output 03/17/22 03/18/22 03/18/22 18:59 06:59 18:59 Weight 142.882 kg - Exam Abdomen: Soft, nondistended, mild ecchymosis at the extraction site, mild tenderness Assessment/Plan (1) Morbid obesity with BMI of 50.0-59.9, adult Narrative/Plan: Patient doing well postoperative. Continue increasing liquid and protein intake. Continue light lifting for now. Recheck 2-3 weeks. Plan: Date: 03/18/22 Initial Weight: 157.397 kg Initial BMI: 51.2 Current Weight: 142.882 kg Current BMI: 46.5 Type of Surgery: Vertical Sleeve Gastrectomy Total Volume in Band: Previous Volume: Volume Removed: Volume Added: Band Size:
== END ==
LOC: BARWHC3 14:55
PROVIDERS: ATTEND Surgery
DX: E66.01 Morbid (severe) obesity due to excess calories (principal); Z68.42 Body mass index [BMI] 45.0-49.9, adult; Z98.84 Bariatric surgery status; Z88.0 Allergy status to penicillin
CPT/HCPCS: 97802; 99211

== ENCOUNTER → 2022-04-21 | Outpatient (CLI) | payer BC ==
[2022-04-21 14:37] LABS: HCT 40.4 % (39.6-50.0); HGB 13.7 g/dL (13.0-17.0); MCH 29.2 pg (27.0-32.0); MCHC 33.9 g/dL (32.0-37.0); MCV 86.1 fL (80.0-97.0); Mean Platelet Volume 11.8 fL (9.5-12.2); NRBC Per 100 WBC 0 /100 WBCS (0.0-0.0); Platelet Count 192 X 10*3/uL (140-440); RBC 4.69 X 10*6/uL (4.40-5.60); RDW 14.7 % (11.5-14.5); WBC 6.24 X 10*3/uL (4.50-10.00)
[2022-04-21 15:40] LABS: African American GFR (CKD) 138.8 (60.0-200.0); Albumin 4.4 g/dL (3.8-4.9); Albumin/Globulin Ratio 1.81 (1.60-3.17); Anion Gap 14.2 mmol/L (10.00-18.00); BUN/Creat Ratio 13.77 Ratio (12.00-20.00); Blood Urea Nitrogen 9.1 mg/dL (9.0-27.0); Calcium 9.2 mg/dL (8.7-10.3); Carbon Dioxide 23.2 mmol/L (20.0-27.5); Globulin 2.4 g/dL (1.6-3.3); Non-African American GFR(CKD) 119.8 (60.0-200.0); Potassium 4.2 mmol/L (3.5-5.5); Total Bilirubin 0.9 mg/dL (0.30-1.20); Total Protein 6.8 g/dL (6.2-8.2)
== END | disposition home or self-care (01) ==
LOC: LABWHC1 10:42
PROVIDERS: ATTEND Surgery
DX: E55.9 Vitamin D deficiency, unspecified (principal); E66.01 Morbid (severe) obesity due to excess calories; K90.89 Other intestinal malabsorption
CPT/HCPCS: 36415; 80053; 82306; 82607; 82746; 83540; 84425; 85027

== ENCOUNTER → 2022-05-06 | Outpatient (CLI) | payer BC ==
[2022-05-06 14:35] VITALS: BP 136/76; PULSE 62; RESP 16; TEMP 98; BMI 41.3
--- NOTE | 2022-05-06 15:14 | P.BASOAP ---
Subjective Progress Note Date: 05/06/22 Principal diagnosis: Morbid obesity Patient returns for recheck. He was last seen 04/01. Patient has no pain. He does not take antiacids daily. He did have mild reflux on Thursday and took Tums with resolution of his symptoms. He has lost 23 pounds since his last visit. Labs checked last visit look good. Objective - Vital Signs Vital signs: Vital Signs Temp 98 F 05/06/22 14:33 Pulse 62 05/06/22 14:33 Resp 16 05/06/22 14:33 BP 136/76 05/06/22 14:33 Pulse Ox FiO2 Intake & Output 05/05/22 05/06/22 05/06/22 18:59 06:59 18:59 Weight 127.006 kg - Exam Abdomen: Soft, nontender, nondistended Assessment/Plan (1) Morbid obesity with BMI of 50.0-59.9, adult Narrative/Plan: Patient doing well at this time. Continue dietary and exercise regimen. Will use his antiacids on an as-needed basis. Follow-up 6 weeks. We'll check 3 month labs at that time. Plan: Date: 05/06/22 Initial Weight: 157.397 kg Initial BMI: 51.2 Current Weight: 127.006 kg Current BMI: 41.3 Type of Surgery: Vertical Sleeve Gastrectomy Total Volume in Band: Previous Volume: Volume Removed: Volume Added: Band Size:
== END ==
LOC: BARWHC3 13:56
PROVIDERS: ATTEND Surgery
DX: E66.01 Morbid (severe) obesity due to excess calories (principal); Z98.84 Bariatric surgery status; Z68.43 Body mass index [BMI] 50.0-59.9, adult
CPT/HCPCS: 99211

== ENCOUNTER → 2022-06-17 | Outpatient (CLI) | payer BC ==
[2022-06-17 14:14] VITALS: BP 123/79; PULSE 47; RESP 16; TEMP 97.8; BMI 38.5
--- NOTE | 2022-06-17 22:30 | P.BASOAP ---
Subjective Progress Note Date: 06/17/22 Principal diagnosis: Morbid obesity Patient returns for recheck. Doing well since last visit. Excellent weight loss. He is very active at this time. He is due for 3 month labs. He has had a few episodes of regurgitation but improving. Objective - Vital Signs Vital signs: Vital Signs Temp 97.8 F 06/17/22 14:11 Pulse 47 L 06/17/22 14:11 Resp 16 06/17/22 14:11 BP 123/79 06/17/22 14:11 Pulse Ox FiO2 Intake & Output 06/17/22 06/17/22 06/18/22 06:59 18:59 06:59 Weight 118.388 kg - Exam Abdomen: Soft, nontender, nondistended Assessment/Plan (1) Morbid obesity with BMI of 50.0-59.9, adult Narrative/Plan: Patient doing well at this time. Continue dietary and excise regimen. Check 3 months labs. Follow-up 4-6 weeks. Plan: Date: 06/17/22 Initial Weight: 157.397 kg Initial BMI: 51.2 Current Weight: 118.388 kg Current BMI: 38.5 Type of Surgery: Vertical Sleeve Gastrectomy Total Volume in Band: Previous Volume: Volume Removed: Volume Added: Band Size:
[2022-06-17 23:28] LABS: HCT 40.8 % (39.6-50.0); HGB 13.6 g/dL (13.0-17.0); MCHC 33.3 g/dL (32.0-37.0); MCV 90.1 fL (80.0-97.0); Mean Platelet Volume 11.9 fL (9.5-12.2); NRBC Per 100 WBC 0 /100 WBCS (0.0-0.0); Platelet Count 199 X 10*3/uL (140-440); RBC 4.53 X 10*6/uL (4.40-5.60); RDW 13.7 % (11.5-14.5)
[2022-06-18 01:53] LABS: African American GFR (CKD) 137.7 (60.0-200.0); Albumin 4.4 g/dL (3.8-4.9); Albumin/Globulin Ratio 1.59 (1.60-3.17); Anion Gap 11.4 mmol/L (10.00-18.00); BUN/Creat Ratio 14.92 Ratio (12.00-20.00); Blood Urea Nitrogen 10.1 mg/dL (9.0-27.0); Calcium 9.5 mg/dL (8.7-10.3); Carbon Dioxide 26.9 mmol/L (20.0-27.5); Globulin 2.8 g/dL (1.6-3.3); Non-African American GFR(CKD) 118.8 (60.0-200.0); Potassium 4.2 mmol/L (3.5-5.5); Total Bilirubin 0.5 mg/dL (0.30-1.20); Total Protein 7.2 g/dL (6.2-8.2)
== END ==
LOC: BARWHC3 13:52
PROVIDERS: ATTEND Surgery
DX: E66.01 Morbid (severe) obesity due to excess calories (principal); Z68.38 Body mass index [BMI] 38.0-38.9, adult; K90.89 Other intestinal malabsorption; E55.9 Vitamin D deficiency, unspecified; Z88.0 Allergy status to penicillin
CPT/HCPCS: 80053; 82306; 82607; 82746; 83540; 84425; 85027; 99211

== ENCOUNTER → 2022-08-05 | Outpatient (CLI) | payer BC ==
[2022-08-05 14:19] VITALS: BP 125/78; PULSE 58; TEMP 98; BMI 36.3
--- NOTE | 2022-08-05 14:20 | P.BASOAP ---
Subjective Progress Note Date: 08/05/22 Principal diagnosis: Morbid obesity Patient returns for recheck. He was last seen in June. Since that time patient doing well. No heartburn or regurgitation episodes. 15 pounds additional weight loss. 3 months labs reviewed from last visit. Iron was slightly low at 58. He has been eating more meat that time. Objective - Vital Signs Vital signs: Intake & Output 08/04/22 08/05/22 08/05/22 18:59 06:59 18:59 Weight 111.584 kg - Exam Abdomen: Soft, nontender, nondistended Assessment/Plan (1) Morbid obesity with BMI of 50.0-59.9, adult Narrative/Plan: Patient doing well at this time. Continue dietary and exercise regimen. Follow-up in September. We'll check 6 months labs at that time. Plan: Date: Initial Weight: 157.397 kg Initial BMI: Current Weight: 111.584 kg Current BMI: Type of Surgery: Total Volume in Band: Previous Volume: Volume Removed: Volume Added: Band Size:
== END ==
LOC: BARWHC3 14:13
PROVIDERS: ATTEND Surgery
DX: E66.01 Morbid (severe) obesity due to excess calories (principal); Z68.36 Body mass index [BMI] 36.0-36.9, adult; Z88.0 Allergy status to penicillin
CPT/HCPCS: 99211

== ENCOUNTER → 2022-12-02 | Outpatient (CLI) | payer BC ==
[2022-12-02 14:36] VITALS: BP 116/72; PULSE 49; RESP 16; TEMP 97.7; BMI 34.2
--- NOTE | 2022-12-02 16:32 | P.BASOAP ---
Subjective Progress Note Date: 12/02/22 Principal diagnosis: Morbid obesity 42-year-old male returns for recheck. Doing well since last visit. He is having mild heartburn at times. Takes Tums only. He has lost 4 pounds. Remains quite active. Mild bradycardia with heart rate 48 repeat 53 today. Blood pressure stable. He is asymptomatic. Objective - Vital Signs Vital signs: Vital Signs Temp 97.7 F 12/02/22 14:33 Pulse 49 L 12/02/22 14:33 Resp 16 12/02/22 14:33 BP 116/72 12/02/22 14:33 Pulse Ox FiO2 Intake & Output 12/01/22 12/02/22 12/02/22 18:59 06:59 18:59 Weight 105.233 kg - Exam Abdomen: Soft, nontender, nondistended Assessment/Plan (1) Morbid obesity with BMI of 50.0-59.9, adult Narrative/Plan: 42-year-old male doing well at this time. Options reviewed. Will start taking omeprazole Thursday at this time. He will see his primary care physician discussed his bradycardia further. Continue dietary and exercise regimen. Follow-up 2 months. Plan: Date: 12/02/22 Initial Weight: 157.397 kg Initial BMI: 51.2 Current Weight: 105.233 kg Current BMI: 34.2 Type of Surgery: Vertical Sleeve Gastrectomy Total Volume in Band: Previous Volume: Volume Removed: Volume Added: Band Size:
== END ==
LOC: BARWHC3 13:54
PROVIDERS: ATTEND Surgery
DX: E66.01 Morbid (severe) obesity due to excess calories (principal); Z68.34 Body mass index [BMI] 34.0-34.9, adult; Z88.0 Allergy status to penicillin
CPT/HCPCS: 99211

== ENCOUNTER → 2023-02-17 | Outpatient (CLI) | payer BC ==
[2023-02-17 14:47] VITALS: BP 114/79; PULSE 49; RESP 16; TEMP 97.8; BMI 34.1
--- NOTE | 2023-02-17 14:57 | P.BASOAP ---
Subjective Progress Note Date: 02/17/23 Principal diagnosis: Morbid obesity Patient returns for recheck. Doing well since his last visit in November. He took his antiacids 3 days per week and then stopped it a month or so ago. Minimal reflux symptoms. Takes Tums occasionally. He is due for annual labs next month. He saw his primary care physician regarding his bradycardia and no further workup planned. Objective - Vital Signs Vital signs: Vital Signs Temp 97.8 F 02/17/23 14:45 Pulse 49 L 02/17/23 14:45 Resp 16 02/17/23 14:45 BP 114/79 02/17/23 14:45 Pulse Ox FiO2 Intake & Output 02/16/23 02/17/23 02/17/23 18:59 06:59 18:59 Weight 104.78 kg - Exam Abdomen: Soft, nontender, nondistended Assessment/Plan (1) Morbid obesity with BMI of 50.0-59.9, adult Narrative/Plan: Patient doing well after sleeve gastrectomy. Continue dietary and exercise regimen. Continue as needed antiacids. Check annual labs in March. Follow-up with us in 2 months. Plan: Date: 02/17/23 Initial Weight: 157.397 kg Initial BMI: 51.2 Current Weight: 104.78 kg Current BMI: 34.1 Type of Surgery: Vertical Sleeve Gastrectomy Total Volume in Band: Previous Volume: Volume Removed: Volume Added: Band Size:
== END ==
LOC: BARWHC3 02-03 10:58
PROVIDERS: ATTEND Surgery
DX: E66.01 Morbid (severe) obesity due to excess calories (principal); Z98.84 Bariatric surgery status; Z71.3 Dietary counseling and surveillance; Z68.34 Body mass index [BMI] 34.0-34.9, adult; Z88.0 Allergy status to penicillin
CPT/HCPCS: 99211